=== PATIENT | female | born 1970 | race Caucasian/White ===

== ENCOUNTER 2023-10-24 17:04 | Inpatient (IN) | payer OTHER, SELFPAY ==
[2023-10-24 12:53] VITALS: BMI 43.8
[2023-10-24 12:56] VITALS: BP 200/100
--- NOTE | 2023-10-24 13:16 | ED.GENMED ---
History of Present Illness
General
Chief Complaint: Musculo-Skeletal Complaint
Source: patient
Exam Limitations: none
Time Seen by Provider: 10/24/23 13:09
Nursing documentation reviewed up to this point in time: agreed with
Travel History
Have you had any contact with someone who has COVID-19?: No
Do you have any symptoms of coronavirus? Fever > 100 degrees, chills, cough, shortness of breath, sore throat, loss of taste or smell, muscle aches, or headache?: Yes
Symptoms:: cough
History of Present Illness
History of Present Illness:
53-year-old female with history of asthma states she is here for cough and bilateral rib pain left greater than right, has had a cough since she was diagnosed with COVID on 10/11, she went to urgent care today and they had no x-ray availability so
sent here for evaluation. She states she has had low-grade fevers, denies N/V/C/D.
Past History
Past History
ED Past Medical History: Asthma
ED Past Surgical History: Appendectomy and
Social History
Tobacco: Non-smoker
Alcohol: None
Personal:
Living: with family
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
Review of Systems
Review of Systems
Allergies reviewed?: Yes
All Other Systems: ROS reviewed and negative except as documented in HPI and ROS
Constitutional: Reports fever (Low-grade) and fatigue
Respiratory: Reports cough and trouble breathing
Cardiac: Denies chest pain
ABD/GI: Denies abdominal pain, nausea, vomiting or diarrhea
: Reports flank pain (Both flanks, left greater than right); Denies dysuria, difficulty voiding or urgency
Musculoskeletal: Reports no symptoms
Skin: Reports no symptoms
Neurological: Reports no symptoms
Phy Exam
Physical Exam
Physical Exam:
GENERAL: No acute distress. A&Ox3. Morbidly obese
CONSTITUTIONAL: Afebrile.
EYES: Clear, conjunctivae normal
Neck: Supple
RESPIRATORY: Regular respirations, mildly labored, crackles in bases. Pulse ox 98% room air
CARDIOVASCULAR: Regular rate and rhythm, no murmurs, no rubs.
GI: Soft, nontender, normal BS
MUSCULOSKELETAL: Moves with ease. Well perfused.
SKIN: Warm, dry, pink
PSYCH: Normal mood and affect. Well kept, interactive and appropriate
NEUROLOGIC: Awake, alert and oriented. No focal neurological deficits
Course
Orders/Labs/Results
Orders:
Orders
10/24/23 13:15
CR Chest - 2 Views Urgent
Comment:
Reason For Exam: cough, flank pain L > R
10/24/23 14:18
0.9% Sodium Chloride 1000 ml [Nss] 1,000 ml IV BOLUS
10/24/23 14:[address] Non Medication Order As Directed
Physician Order: Please recheck BP
10/24/23 14:36
Complete Blood Count/With Diff Urgent
Comprehensive Metabolic Panel Urgent
10/24/23 14:45
Azithromycin 500 mg/250 ml [Zithromax Infusion] 500 mg in 250 ml IV NOW
CefTRIAXone [Rocephin] 1,000 mg IV NOW STA
10/24/23 15:30
Lactic Acid Q4H
Comment: CANCEL 2nd LACTIC ACID IF 1st LACTIC ACID IS LESS THAN 2
Blood Culture Q30M
THEODORA Source: Blood/Venous
Specimen Description:
10/24/23 15:55
Blood Culture Q30M
THEODORA Source: Blood/Venous
Specimen Description:
10/24/23 16:50
Admit/Transfer Patient As Directed
Co-Sign Provider:
Level of Care: Inpatient admission
Assign to:: Medical/Surgical
Physician / Group: Simon
Diagnosis: Pneumonia
Reason for Hospitalization: Pneumonia
Expected length of stay greater than two midnights?: Yes
ELOS- Estimated Length of Stay in days: 3
I certify the patient meets the requirements for IP care: Yes
10/24/23 16:51
Code Status As Directed
Resuscitation Status: Full Code
10/24/23 16:54
EKG [Electrocardiogram (*1)] Routine
Reason for Study: Shortness of Breath
10/24/23 18:45
Lactic Acid Q4H
Comment: CANCEL 2nd LACTIC ACID IF 1st LACTIC ACID IS LESS THAN 2
Abnormal Lab Results
10/24/23 10/24/23
14:36 15:30
WBC 13.3 H 10^3/uL
(4.8-10.8)
MCH 31.5 H pg
(27.0-31.0)
Abs Immat Gran (auto) 0.1 H 10^3/uL
(0-0.05)
Absolute Neuts (auto) 9.2 H 10^3/uL
(1.4-6.5)
Absolute Monos (auto) 0.9 H 10^3/uL
(0.1-0.6)
Lymphocytes % 20.4 L %
(20.5-51.1)
Carbon Dioxide 20 L mmol/L
(22-30)
Glucose 111 H mg/dl
(70-99)
Lactic Acid 2.2 H mmol/L
(0.7-2.0)
AST 40 H U/L
(14-36)
ALT 38 H U/L
(0-35)
Total Protein 9.0 H g/dl
(6.3-8.2)
10/24/23 14:36
10/24/23 14:36
Vital Signs
Initial and Last Documented VS:
Initial Vital Signs
Temp Pulse Resp BP Pulse Ox
98.0 F 106 18 200/100 98
10/24/23 12:56 10/24/23 12:56 10/24/23 12:56 10/24/23 12:56 10/24/23 12:56
Last Documented Vital Signs
Temp Pulse Resp BP Pulse Ox
98.0 F 101 20 161/91 95
10/24/23 12:56 10/24/23 16:00 10/24/23 16:00 10/24/23 16:00 10/24/23 16:00
Hand Button Splitter consulted with Physician
Hand Button Splitter consulted with physician?: Yes
Name of Physician Consulted: Joseph
MDM/Problems Addressed
Differential Diagnosis Includes:
Viral URI, pneumonia, asthma exacerbation
MDM/Problems Addressed:
53-year-old female with history of asthma states she is here for cough and bilateral rib pain left greater than right, has had a cough since she was diagnosed with COVID on 10/11, she went to urgent care today and they had no x-ray availability so
sent here for evaluation. She states she has had low-grade fevers, denies N/V/C/D.
Afebrile
10/24/2023 1443 PM
Chest x-ray radiology report read: IMPRESSION:
Small to moderate left pleural effusion. Cannot exclude left lower lobe parenchymal process, such as pneumonia.
Minor localized pneumonia in the lateral right midlung zone.
10/24/2023 1625 PM
Patient has dyspnea on exertion
CBC: WBC 13.3
CMP: No clinically significant abnormality
Plan: Admit: Bilateral pneumonia dyspnea on exertion
Hospitalist notified of admission
Case discussed with Dr. Ruiz who agrees with assessment and plan
*Critical Care Note
Total Time (30-74mins, 75-104mins- exclusive of procedures): Not Applicable
ED Attending Note
-
Portions of this chart may have been created with voice recognition software.� Occasional wrong word or��sound alike� substitutions may have occurred due to the inherent limitations of voice recognition software.
Discharge Plan
Departure
Patient Disposition: Admit
Date of Disposition: 10/24/23
Time of Disposition: 16:23
Admit to: Med/Surg
Presentation/result/management discussed w/ accepting MD/DO: Hospitalist
Condition: Fair
Covid-19: Negative COVID-19
Discharge Problem:
Bilateral pneumonia, Pleural effusion on left, Dyspnea on exertion
Interventions
Interventions:
*ED COVID-19 Vaccine History Last Done: 10/24/23 12:56
[2023-10-24 15:50] LABS: % Basophils 0.5 % (0-2); % Eosinophils 2.1 % (0-6); % Immature Granulocytes 0.5 % (0-0.5); % Lymphocytes 20.4 % (20.5-51.1); % Monocytes 6.8 % (1.7-9.3); % Neutrophils 69.7 % (42.2-75.2); Absolute Basophils 0.1 10^3/uL (0-0.2); Absolute Eosinophils 0.3 10^3/uL (0-0.7); Absolute Immature Granulocytes 0.1 10^3/uL (0-0.05); Absolute Lymphocytes 2.7 10^3/uL (1.2-3.4); Absolute Monocytes 0.9 10^3/uL (0.1-0.6); Absolute Neutrophils 9.2 10^3/uL (1.4-6.5); Hemoglobin 14.3 g/dL (12.0-16.0); Mean Corp Hgb Conc. 35.8 g/dL (33.0-37.0); Mean Corpuscular Hgb 31.5 pg (27.0-31.0); Mean Corpuscular Volume 88.1 fL (81.0-99.0); Nucleated Red Blood Cells % 0 %; Red Blood Cell Count 4.54 10^6/uL (4.20-5.40); Red Cell Dist. Width 12.4 % (11.5-14.5); White Blood Cell Count 13.3 10^3/uL (4.8-10.8)
[2023-10-24] MEDS: ZITHROMAX INFUSION 250 IV (15:56)
[2023-10-24] MEDS: ROCEPHIN 1000 MG IV (15:56)
[2023-10-24 16:00] VITALS: BP 161/91
[2023-10-24 16:02] LABS: Lactic Acid 2.2 mmol/L (0.7-2.0)
[2023-10-24] MEDS: NSS 1000 IV ×2 (16:03→20:05)
[2023-10-24 16:04] LABS: ALT (SGPT) 38 U/L (0-35); AST (SGOT) 40 U/L (14-36); Albumin 4.2 g/dl (3.5-5.0); Alkaline Phosphatase 101 U/L (38-126); Blood Urea Nitrogen 14 mg/dl (7-17); Calcium 9.5 mg/dl (8.4-10.2); Carbon Dioxide 20 mmol/L (22-30); Chloride 107 mmol/L (98-107); Glucose 111 mg/dl (70-99); Potassium 4.5 mmol/L (3.5-5.1); Sodium 136 mmol/L (135-145); eGFR > 60.00
--- NOTE | 2023-10-24 16:53 | HPS.HSE ---
Family Physician
-
Family Physician: Elana Singh
Chief Complaint
-
Cough and fever
History of Present Illness
53-year-old female was infected and diagnosed with COVID in September of this year and she recovered really well since August 18 she has been having cough which is dry except 1 episode and some clear phlegm, associated with generalized body ache,
subjective fever and chill, poor appetite and malaise, denies any urinary or GI symptoms, no chest pain or any headache or vision change.
Complaining of the lower back pain especially if she have a fever.
Workup in the ER concerning for bilateral pneumonia.
Accompanied by the at the bedside
She is awake, alert and oriented x 3. Given IV fluid and antibiotics.
At home she has been taking ibuprofen and albuterol inhaler as needed
Medical History
Past Medical History
Past Medical History: Reports Other
Additional Past Medical History:
Past medical history reviewed:
No known major medical history.
Social history: Lives at home with her , no smoking alcohol use or drug and she is independent.
Family history: Reviewed and noncontributory
Past Surgical History: Reports Other
Social History
Unable to obtain full social history at this time due to: Other
Family History
Family History: Other
Allergies / Home Medications
Allergies reflects when Allergies were last updated in [employer].
Home Medications with original date entered in [employer]
Allergy/Medication List:
Allergies
Allergy/AdvReac Type Severity Reaction Status Date / Time
NKA - No Known Allergies Allergy Unknown Uncoded 10/24/23 13:00
Home Medications
albuterol sulfate 90 mcg/actuation aerosol inhaler (ProAir HFA) 2 puff inhalation R Q6HPRN PRN sob 10/24/23
guaifenesin 600 mg tablet, extended release 12 hr (Mucinex) 600 mg PO BIDPRN PRN cough 10/24/23
ibuprofen 200 mg tablet (Advil) 200 mg PO Q6H PRN mild pain 10/24/23
Review of Systems
-
A 12 point ROS was completed and negative except as noted: Yes
Physical Exam
Vital Signs
Vital Signs
Temp Pulse Resp BP Pulse Ox
98.0 F 101 20 161/91 95
10/24/23 12:56 10/24/23 16:00 10/24/23 16:00 10/24/23 16:00 10/24/23 16:00
Physical exam:
General: Awake, alert and oriented x3, not in distress and holds appropriate conversation. Lethargic looking,
HEENT: No active discharge, ecchymosis or bruising, moist lips, tongue and mucous membrane.
Eyes: No discharge or red conjunctiva, no nystagmus, pupils are reactive and equal
Neck:Supple, no JVD no bruit no goiter.
Respiratory: Normal AP contour and diameter, normal chest wall movement, normal respiratory effort, no respiratory distress,
Lungs: Good air entry bilaterally, no wheezing or rhonchi, no rales or crackles
Heart: S1, S2 regular, normal rate, no added sound.
Gastrointestinal: Positive bowel sounds, soft, nontender, no guarding or rigidity or organomegaly
Musculoskeletal: , no chest wall abnormality or tenderness. All joints and extremities have good range of motion, no muscle tenderness or any joint swelling or tenderness.
Extremities: No pitting edema, good peripheral pulses, good range of motion
Skin: Dry scaly skin mostly on the hand, warm and dry, no ulceration, normal color.
Neurological: Awake, alert and oriented x3, no facial droop speech clear and comprehensive, good muscle tone, normal sensory and motor function
Psychiatric: Normal mood, normal thought and judgment, normal affect,
Physical Exam
General: Other
Laboratory Results
-
10/24/23 14:36
10/24/23 14:36
Laboratory Results
Lactic Acid 2.2 mmol/L (0.7-2.0) H 10/24/23 15:30
Total Bilirubin 1.0 mg/dl (0.2-1.3) 10/24/23 14:36
AST 40 U/L (14-36) H 10/24/23 14:36
ALT 38 U/L (0-35) H 10/24/23 14:36
Alkaline Phosphatase 101 U/L (38-126) 10/24/23 14:36
chest x-ray:
Small to moderate left pleural effusion. Cannot exclude left lower lobe parenchymal process, such as pneumonia.
Minor localized pneumonia in the lateral right midlung zone.
Data Reviewed
-
Diagnostic Radiology: Image Personally Visualized and interpreted, Discussed with Patient and Discussed with Family
Lab Data: Labs Reviewed by me, Discussed with Patient and Discussed with Family
Old Records: Reviewed
Impression/Plan
-
IMPRESSION:
53-year-old female presented to the hospital complaining of the cough and congestion and subjective fever and chills the last couple of day concerning for pneumonia, recently had COVID.
Bilateral pneumonia
Post COVID
leukocytosis
PLAN:
Manage for community-acquired pneumonia, even she had a COVID but she was not treated or hospitalized as post COVID hospitalization pneumonia high percentage caused by Staph aureus. But she was not there full code with Rocephin and Zithromax
IV fluid
Cough medication
Tylenol and Toradol as needed especially for her back pain and fever
Encourage oral intake.
All discussed with the patient
Discussed with the
CODE STATUS full code
DVT prophy is Lovenox
[2023-10-24] MEDS: TORADOL 30 MG IV (17:30)
[2023-10-24 18:18] VITALS: BP 173/75
[2023-10-24 18:50] VITALS: BP 174/86
[2023-10-24 18:51] VITALS: BMI 43.2
[2023-10-24 19:43] LABS: Lactic Acid 1.5 mmol/L (0.7-2.0)
[2023-10-24] MEDS: LOVENOX 40 MG SC (20:04)
[2023-10-24] MEDS: ProAIR HFA INHALER 2 PUFF INH (20:05)
[2023-10-24] MEDS: MUCINEX 600 MG PO (20:09)
[2023-10-24] MEDS: TYLENOL 650 MG PO (20:10)
[2023-10-25] MEDS: TORADOL 15 MG IV ×3 (00:54→21:29)
[2023-10-25 00:58] VITALS: BP 174/87
[2023-10-25] MEDS: ProAIR HFA INHALER 2 PUFF INH (01:58)
--- NOTE | 2023-10-25 03:50 | PTCARENOTE ---
Patient's BP 175/92. Patient does not take any anti-hypertensive medications. Patient has been hypertensive this admission. IVF infusing at 100ml/hr. Last Lactic level was WNL. DONN Frank made aware, order received to decrease IVF. Care ongoing.
[2023-10-25] MEDS: NSS 1000 IV (05:23)
[2023-10-25 06:20] LABS: % Basophils 0.5 % (0-2); % Eosinophils 2.7 % (0-6); % Immature Granulocytes 0.5 % (0-0.5); % Lymphocytes 28.6 % (20.5-51.1); % Monocytes 8.7 % (1.7-9.3); Absolute Basophils 0.1 10^3/uL (0-0.2); Absolute Eosinophils 0.3 10^3/uL (0-0.7); Absolute Immature Granulocytes 0.1 10^3/uL (0-0.05); Absolute Lymphocytes 3.2 10^3/uL (1.2-3.4); Absolute Neutrophils 6.6 10^3/uL (1.4-6.5); Hematocrit 33.7 % (37.0-47.0); Hemoglobin 11.8 g/dL (12.0-16.0); Mean Corpuscular Hgb 31.8 pg (27.0-31.0); Mean Corpuscular Volume 90.8 fL (81.0-99.0); Mean Platelet Volume 9.5 fL (7.4-10.4); Nucleated Red Blood Cells % 0 %; Platelet Count 323 10^3/uL (130-400); Red Blood Cell Count 3.71 10^6/uL (4.20-5.40); Red Cell Dist. Width 12.2 % (11.5-14.5); White Blood Cell Count 11.1 10^3/uL (4.8-10.8)
[2023-10-25 07:00] VITALS: BP 159/76
[2023-10-25 07:18] LABS: Blood Urea Nitrogen 14 mg/dl (7-17); Calcium 8.5 mg/dl (8.4-10.2); Carbon Dioxide 20 mmol/L (22-30); Chloride 104 mmol/L (98-107); Estimated Creatinine Clearance > 125 ml/min; Glucose 110 mg/dl (70-99); Sodium 134 mmol/L (135-145); eGFR > 60.00
[2023-10-25] MEDS: MUCINEX 600 MG PO (09:04)
--- NOTE | 2023-10-25 11:56 | W.PN.HOSP.TC ---
Today's Communication/Plan
-
USS chest
Change AB to Doxy and Rocephin
Assessment / Plan
Assessment / Plan
53-year-old female admitted to the hospital with symptoms of pneumonia
CVS: S1-S2 normal
Chest: decreases left base, few rales mid left lung
Abdomen: Soft, NT / Bowel sounds present
Extremities: No edema, normal pulses
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
# Pneumonia-treat as coming to acquired
Small to moderate left pleural effusion-check ultrasound
May need CT scan
Change Zithromax to doxy, continue Rocephin.
Blood cultures pending
Check sputum cultures
# History of asthma on as needed albuterol as outpatient-
# Mild lactic acidosis improved
# Elevated LFTs-likely secondary to recent viral [id number]
# Mild hyponatremia-follow for now
# DVT Prophylaxis-Lovenox
# Full CODE
Anticipated Discharge: 24 - 48 hours
Subjective/Interval History
-
Date of Service: October 25, 2023
Objective Data
-
Labs:
Laboratory Results
10/25/23
06:10
WBC 11.1 H
Hgb 11.8 L
Hct 33.7 L
Plt Count 323
Sodium 134 L
Potassium 4.0
Chloride 104
Carbon Dioxide 20 L
BUN 14
Creatinine 0.5 L
Glucose 110 H
Calcium 8.5
Vital Signs:
Vital Signs
Temp Pulse Resp BP Pulse Ox
99.1 F 90 16 159/76 94
10/25/23 07:00 10/25/23 07:00 10/25/23 07:00 10/25/23 07:00 10/25/23 10:45
[2023-10-25 12:35] LABS: ALT (SGPT) 29 U/L (0-35); AST (SGOT) 33 U/L (14-36); Albumin 3.3 g/dl (3.5-5.0); Alkaline Phosphatase 81 U/L (38-126); Direct Bilirubin 0.6 mg/dl (0.0-0.4); Total Protein 7.2 g/dl (6.3-8.2)
[2023-10-25] MEDS: ROCEPHIN 1000 MG IV (13:04)
[2023-10-25] MEDS: VIBRAMYCIN 100 MG PO ×2 (13:04→21:17)
[2023-10-25] MEDS: STERILE WATER FOR INJECTION 10 ML IV (13:05)
[2023-10-25 15:11] VITALS: BP 177/82
[2023-10-25] MEDS: TYLENOL 650 MG PO (17:13)
[2023-10-25] MEDS: LOVENOX 40 MG SC (17:22)
[2023-10-25] MEDS: COZAAR 25 MG PO (17:37)
[2023-10-25 23:15] VITALS: BP 131/61
[2023-10-26 06:42] LABS: Hematocrit 33.2 % (37.0-47.0); Hemoglobin 11.5 g/dL (12.0-16.0); Mean Corp Hgb Conc. 34.6 g/dL (33.0-37.0); Mean Corpuscular Hgb 30.6 pg (27.0-31.0); Mean Corpuscular Volume 88.3 fL (81.0-99.0); Mean Platelet Volume 9.5 fL (7.4-10.4); Platelet Count 359 10^3/uL (130-400); Red Blood Cell Count 3.76 10^6/uL (4.20-5.40); Red Cell Dist. Width 12.2 % (11.5-14.5); White Blood Cell Count 9.5 10^3/uL (4.8-10.8)
[2023-10-26 07:14] LABS: Blood Urea Nitrogen 13 mg/dl (7-17); Calcium 8.6 mg/dl (8.4-10.2); Carbon Dioxide 19 mmol/L (22-30); Chloride 107 mmol/L (98-107); Estimated Creatinine Clearance > 125 ml/min; Glucose 100 mg/dl (70-99); Potassium 3.8 mmol/L (3.5-5.1); Sodium 133 mmol/L (135-145); eGFR > 60.00
[2023-10-26 07:43] VITALS: BP 175/90
[2023-10-26] MEDS: VIBRAMYCIN 100 MG PO ×2 (08:11→21:48)
[2023-10-26] MEDS: COZAAR 25 MG PO ×2 (08:11→17:08)
[2023-10-26] MEDS: TYLENOL 650 MG PO ×2 (10:44→16:24)
[2023-10-26] MEDS: STERILE WATER FOR INJECTION 10 ML IV (13:01)
[2023-10-26] MEDS: ROCEPHIN 1000 MG IV (13:01)
--- NOTE | 2023-10-26 13:02 | PN.CDI ---
Addendum entered and electronically signed by Lin Lauren MD 10/27/23 07:49:
Documentation is complete at this time.
Original Note:
CDI
- -
CDI:
Physician Documentation Request
Admit Date: 10/24/23 17:04
Dear Doctor Xin,
Patient admitted with pneumonia.
10/25 PN, 'Pneumonia-treat as coming to acquired....Change Zithromax to Doxy, continue Rocephin.'
On admission, WBC 13.3 and HR> 90.
Please clarify which of the following most accurately describes the status of the patient's infection:
Sepsis, POA
Pneumonia only
Other
Sepsis
- Systemic manifestations of infection, with 2 or more SIRS criteria which include:
- Fever >100.4 degrees F or hypothermia < 96.8 degrees F
- Leukocytosis - WBC > 12,000 or leukopenia - WBC < 4,000 or > 10% bands
- Tachycardia > 90 beats per minute
- Tachypnea - RR > 20 breaths per minute or PaCO2 , 32mmHg
Source: Merck Manual 2012
- Indicate the known or suspected organism
- Indicate the known or suspected underlying infection, such pneumonia
- Indicate if a suspected bacterial infection of unknown source
Localized Infection Only, Without Systemic Illness
- indicate the site/source, such as pneumonia
Other
Unable to Determine
Use of terms such as suspected, likely, concern for, or probable (associated with a specific diagnosis that is being evaluated, monitored, or treated as if it exists) are acceptable and can be coded in the inpatient setting, when documented at the
time of discharge.
Thank you,
Manjula WATKINSN,RN,CCDS
CDI Specialist
Available via [employer] text
Please use your independent medical judgment in providing your response.
--- NOTE | 2023-10-26 13:36 | CON.PUL ---
Consultation
Consultation Request
Date/Time Consultation Requested: 10/26/2023
Date/Time Consultation Performed: 10/26/2023
Requesting Provider: Dr. Montes
Performing Provider: Dr. Asif Elkins
Reason for Consultation: Pneumonia
Medical History
-
History of Present Illness:
53-year-old woman who in September was diagnosed with COVID, came to the hospital complaining of generalized bodyaches, subjective fevers, chills, poor appetite and malaise, mild cough and with minimal phlegm production.
Evaluation in the emergency room showed a chest x-ray with bilateral infiltrates suggestive of pneumonia.
Her chest discomfort has improved.
She feels better.
Ambulated to the restroom today
Remains off oxygen
Continues to have coughing and phlegm production.
Does report history of snoring, is concerned about obstructive sleep apnea. She has never been tested.
Does report history of asthma which is mild. Only uses albuterol as needed
Past Medical History
Past Medical History: Other (See assessment and plan section)
Social History
Tobacco: Non-smoker
Alcohol: None
Living: With Family
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
Occupational Exposures: Denies
Environmental Exposures: Denies
Family History
Family History: Reviewed & Not Pertinent
Allergies / Home Medications
Allergies
Allergy/AdvReac Type Severity Reaction Status Date / Time
No Known Allergies Allergy Unverified 10/24/23 18:41
Home Medications
Medication Instructions Recorded Confirmed Last Taken Type
albuterol sulfate 90 mcg/actuation 2 puff inhalation R Q6HPRN PRN sob 10/24/23 10/24/23 Unknown History
aerosol inhaler (ProAir HFA)
guaifenesin 600 mg tablet, 600 mg PO BIDPRN PRN cough 10/24/23 10/24/23 Unknown History
extended release 12 hr (Mucinex)
ibuprofen 200 mg tablet (Advil) 200 mg PO Q6H PRN mild pain 10/24/23 10/24/23 10/24/23 History
Review of Systems
-
History Source: Patient
All other systems: Negative unless noted
Vitals / Labs / Diagnostic Testing
Vital Signs
Temp Pulse Resp BP Pulse Ox
98 F 88 20 175/90 92
10/26/23 07:43 10/26/23 07:43 10/26/23 07:43 10/26/23 08:11 10/26/23 09:38
Lab Data
10/26/23 06:06
10/26/23 06:06
Microbiology
10/24/23 15:55 Blood/Venous Blood Culture - Preliminary
No Growth in 24 hours- Final report to follow
10/24/23 15:30 Blood/Venous Blood Culture - Preliminary
No Growth in 24 hours- Final report to follow
10/25/23 14:11 Sputum Respiratory Culture - Final
10/25/23 14:11 Sputum Gram Stain - Final
Diagnostic Testing:
Physical Exam
-
HEENT: Normocephalic
Cardiovascular: S1/S2
Respiratory: Wheeze (n), Rales (Left base) and Non-Labored Respirations
GI: Soft and Non Distended
Neurology: Awake, Oriented, AO x 3 and No Motor Deficits
General: Respiratory Distress (n)
Assessment
-
Bilateral pneumonia-possibly bacterial, postviral.
Chest x-ray10/24/2023: Small to moderate left pleural effusion. Cannot exclude left lower lobe pneumonia. Minor localized pneumonia on the right hilum.
Left pleural effusion: Likely parapneumonic: Small on ultrasound of the chest. Not amenable for thoracentesis.
Leukocytosis
Mild hyponatremia
History of recent COVID infection .
history of mild intermittent asthma
On albuterol as needed
Snoring
Obesity
Assessment:
Agree with current therapy: Antibiotics for community-acquired pneumonia.
Seem to be responding to antibiotics, leukocytosis improving. Patient is afebrile.
-
Likely postviral
Left pleural effusion not amenable for thoracentesis but will need to be followed.
Cultures so far negative
Sputum culture: Poor sample.
Continue symptomatic management
Incentive spirometry
Increase activity as able
-
Recommend repeating chest x-ray in about 1 to 2 weeks from now to document stability of pleural effusion.
Subsequently repeat chest x-ray in about 4 to 6 weeks from now to document complete resolution
Discussed with patient and she is agreeable for follow-up.
In addition, we discussed snoring and possibility of obstructive sleep apnea. Will discuss further in the outpatient setting.
She does have history of mild asthma: Currently not bronchospastic. Continue albuterol HFA as needed after discharge.
-
Mild hyponatremia: Repeat BMP tomorrow.
-
DVT prophylaxis: SCDs/enoxaparin.
[2023-10-26 15:00] VITALS: BP 181/95
--- NOTE | 2023-10-26 15:10 | CM ---
Reviewed chart, met with patient to obtain information for assessment. Patient stated that she lives with her son and spouse in a four story townhouse with one step to enter. She described herself as independent with her ADLs, personal care,
dressing, and bathing. She ambulates without device. She denied any DME in her home.
She drives.
Patient is independent with all of her cleaning, line servicer, cooking and laundry.
She has never had VN.
Patient has never been to a SNF.
Patient has a prescription plan and uses the [facility] in [place] for all of her medications.
Patient's PCP is Dr. Elana Singh.
Patient stated that physically she feels she is at her baseline and would like to return home when stable.
Plan: Case management will continue to follow and assist with discharge planning. Patient would like to return home when cleared.
[2023-10-26] MEDS: LOVENOX 40 MG SC (17:08)
[2023-10-26 17:17] LABS: Osmolality Serum 280 mOsm/kg (275-300)
--- NOTE | 2023-10-26 17:23 | W.PN.HOSP.TC ---
Today's Communication/Plan
-
Osm studies
Continue AB
White count normalised.
Assessment / Plan
Assessment / Plan
53-year-old female admitted to the hospital with symptoms of pneumonia
CVS: S1-S2 normal
Chest: decreases left base, few rales mid left lung
Abdomen: Soft, NT / Bowel sounds present
Extremities: No edema, normal pulses
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
# Pneumonia-treat as coming to acquired
Small to moderate left pleural effusion-USS with small
Rpt CXR as OP in [address] scan
Change Zithromax to doxy, continue Rocephin.
Blood cultures neg
Sputum cultures-neg
Pulm eval appreciated
# History of asthma on as needed albuterol as outpatient-
# Mild lactic acidosis improved
# Elevated LFTs-likely secondary to recent viral [id number]
# Mild hyponatremia-follow for now
Urine osm and urine sodium
# DVT Prophylaxis-Lovenox
# Full CODE
D/W Pulm
Anticipated Discharge: Within 24 hours
Subjective/Interval History
-
Date of Service: October 26, 2023
Objective Data
-
Labs:
Laboratory Results
10/26/23
06:06
WBC 9.5
Hgb 11.5 L
Hct 33.2 L
Plt Count 359
Sodium 133 L
Potassium 3.8
Chloride 107
Carbon Dioxide 19 L
BUN 13
Creatinine 0.6
Glucose 100 H
Calcium 8.6
Vital Signs:
Vital Signs
Temp Pulse Resp BP Pulse Ox
98.9 F 93 17 181/95 92
10/26/23 15:00 10/26/23 15:00 10/26/23 15:00 10/26/23 15:00 10/26/23 15:00
I&O
10/25/23 10/26/23 10/27/23
06:59 06:59 06:59
Intake Total 1620 / 1620
Balance 1620 / 1620
[2023-10-26 18:08] LABS: Osmolality Urine 821 mOsm/kg (300-900)
[2023-10-26 18:27] LABS: Urine Sodium 164 mmol/L (30-90)
[2023-10-26] MEDS: MUCINEX 600 MG PO (21:52)
[2023-10-26 23:35] VITALS: BP 180/100
[2023-10-27] MEDS: APRESOLINE 5 MG IV ×2 (00:55→10:32)
[2023-10-27 07:37] VITALS: BP 173/94
[2023-10-27] MEDS: VIBRAMYCIN 100 MG PO ×2 (08:39→20:36)
[2023-10-27] MEDS: COZAAR 50 MG PO (08:39)
[2023-10-27] MEDS: TYLENOL 650 MG PO ×2 (08:39→19:25)
--- NOTE | 2023-10-27 11:09 | W.PN.PUL3 ---
Today's Communication / Plan
-
Cont. AB, transition to PO upon dc and complete total 7d.
will need short term follow up in office, with CXR.
Will sign off.
Assessment
-
Bilateral pneumonia-possibly bacterial, postviral.
Chest x-ray10/24/2023: Small to moderate left pleural effusion. Cannot exclude left lower lobe pneumonia. Minor localized pneumonia on the right hilum.
Left pleural effusion: Likely parapneumonic: Small on ultrasound of the chest. Not amenable for thoracentesis.
Leukocytosis
Mild hyponatremia
History of recent COVID infection .
history of mild intermittent asthma
On albuterol as needed
Snoring
Obesity
Assessment:
Continue with Antibiotics for community-acquired pneumonia.
Ok to transition to PO upond DC and complete total of 7days.
Seem to be responding to antibiotics, leukocytosis resolved. Patient is afebrile.
Likely postviral
-
Left pleural effusion not amenable for thoracentesis but will need to be followed.
Cultures so far negative
Sputum culture: Poor sample.
Continue symptomatic management
Incentive spirometry
Increase activity as able
-
Recommend repeating chest x-ray in about 1 to 2 weeks from now to document stability of pleural effusion.
Subsequently repeat chest x-ray in about 4 to 6 weeks from now to document complete resolution
Discussed with patient and she is agreeable for follow-up.
In addition, we discussed snoring and possibility of obstructive sleep apnea. Will discuss further in the outpatient setting.
She does have history of mild asthma: Currently not bronchospastic. Continue albuterol HFA as needed after discharge.
-
Mild hyponatremia: Management per primary team
-
DVT prophylaxis: SCDs/enoxaparin.
-
No additional recommendations from the pulmonary perspective, as above pt agreeable to follow up short term.
Will sign off.
Subjective Data
-
Date of Service:
Date of Service: October 27, 2023
Chief Complaint: Pulmonary Follow Up (PNeumonia/Pleural effusion)
Subjective:
No new complaints.
No SOB with ambulating to restroom.
No significant chest discomfort.
Review of Systems
General: Fever (n)
Cardiopulmonary: Dyspnea (none at rest), Cough (improved) and Sputum Production (minimal)
GI: Abdominal Pain (n), Nausea (n) and Vomiting
Objective Data
Data Reviewed
Vital Signs / I&O / Oxygen:
Vital Signs
Temp Pulse Resp BP Pulse Ox
98.0 F 90 16 182/90 93
10/27/23 07:37 10/27/23 10:32 10/27/23 07:37 10/27/23 10:32 10/27/23 07:37
Intake and Output
10/26/23 10/27/23 10/28/23
06:59 06:59 06:59
Intake Total 1620 / 1620 1620 / 1620
Balance 1620 / 1620 1620 / 1620
SaO2 93
Physical Exam
General: Respiratory Distress (n) and Comfortable
HEENT: Normocephalic
Cardiovascular: S1-S2
Respiratory: Crackles (Left base.) and Non-Labored Respirations
GI: Soft and Distended (Obese)
Neurology: Awake, Alert and Oriented
Skin: Warm
Labs/Micro/Reports
Lab Data
10/26/23 06:06
10/26/23 06:06
Microbiology
10/24/23 15:55 Blood/Venous Blood Culture - Preliminary
No Growth in 48 hours- Final report to follow
10/24/23 15:30 Blood/Venous Blood Culture - Preliminary
No Growth in 48 hours- Final report to follow
10/25/23 14:11 Sputum Respiratory Culture - Final
10/25/23 14:11 Sputum Gram Stain - Final
[2023-10-27 12:45] VITALS: BP 202/80
[2023-10-27] MEDS: PROCARDIA XL (EXTENDED RELEASE) 30 MG PO (13:23)
[2023-10-27] MEDS: TRANDATE 10 MG IV (13:23)
[2023-10-27] MEDS: STERILE WATER FOR INJECTION 10 ML IV (13:25)
[2023-10-27] MEDS: ROCEPHIN 1000 MG IV (13:25)
--- NOTE | 2023-10-27 14:39 | W.PN.HOSP.TC ---
Today's Communication/Plan
-
BP control
Renal eval
Left a message for PCP [phone]
Assessment / Plan
Assessment / Plan
53-year-old female admitted to the hospital with symptoms of pneumonia
CVS: S1-S2 normal
Chest: decreased left base, few rales mid left lung
Abdomen: Soft, NT / Bowel sounds present
Extremities: No edema, normal pulses
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
# Pneumonia-treat as coming to acquired
Small to moderate left pleural effusion-USS with small
Rpt CXR as OP in [address] scan
Change Zithromax to doxy, continue Rocephin.
Blood cultures neg
Sputum cultures-neg
Pulm eval appreciated
# HTN- Was started on Losartan 25 mg 2 days ago and increased to 50 mg yesterday. Patient states that she does not initially have high blood pressure in the doctor's office. Started nifedipine
Renal evaluation to see if she needs secondary hypertension workup.
Patient does report headaches frequently which she attributes to sinus
# History of asthma on as needed albuterol as outpatient-
# Mild lactic acidosis improved
# Elevated LFTs-likely secondary to recent viral infection-normalised.
# Mild hyponatremia-follow for now
[facility] Physiology
# DVT Prophylaxis-Lovenox
# Full CODE
D/W Pulm
D/W Nephrology
D/W RN
Anticipated Discharge: Within 24 hours
Subjective/Interval History
-
Date of Service: October 27, 2023
Objective Data
-
Labs:
Laboratory Results
10/27/23
14:16
Sodium Pending
Potassium Pending
Chloride Pending
Carbon Dioxide Pending
BUN Pending
Creatinine Pending
Glucose Pending
Calcium Pending
Vital Signs:
Vital Signs
Temp Pulse Resp BP Pulse Ox
98.0 F 90 16 182/90 93
10/27/23 07:37 10/27/23 10:32 10/27/23 07:37 10/27/23 10:32 10/27/23 07:37
I&O
10/26/23 10/27/23 10/28/23
06:59 06:59 06:59
Intake Total 1620 / 1620 1620 / 1620
Balance 1620 / 1620 1620 / 1620
--- NOTE | 2023-10-27 14:50 | W.PN.UPDATE ---
Update Note
Progress Note Update
Spoke to PCP. Dr. Arlene Thomas
Last vitis was in December 2022.
140/80 -during last visit.
PCP stated that patient has had high blood pressures reported without a diagnosis of hypertension.
Discussed about pneumonia, blood pressure, follow-up needs.
--- NOTE | 2023-10-27 14:53 | W.CON.NEPH ---
Consultation
-
Date/Time Consultation Requested: 10/27/23 1300
Date/Time Consultation Performed: 10/27/23 1330
Requesting Provider: Lin Pérez
Performing Provider: Richa Nicholson
Reason for Consultation: HTN
Medical History
-
Chief Complaint: sob
History of Present Illness:
53-year-old female was recently had COVID in September of this year, history of asthma on inhaler as needed, we'll noted to have some chest tightness and bandlike discomfort in her chest. She saw urgent care and noted to have mild hypoxia. She also
noted to have a cough. She was sent to their ER and diagnosed with bilateral pneumonia felt to be community-acquired. Patient reports having pneumonia in the past as well. Since admission her blood pressures noted to be estimated peak at 200
range despite on medications. She reports no prior history of hypertension that she is aware of it however had history of headache which she thought was the sinus and during these times her blood pressures were elevated in 190 range. She reports
having good blood pressure readings with her doctor's appointment but she doesn't recall them. She also reports having snoring during night. She started to take ibuprofen at least 3-4 pills per day since the beginning of September. Denies any
chest pain, shortness of breath is improving. No lower extremity edema.
Past Medical History
History of asthma
COVID in Sep 2023
Sinus headaches
Social History
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
No alcohol
Family History
or history of kidney disease
Allergies / Home Medications
Allergy/AdvReac Type Severity Reaction Status Date / Time
No Known Allergies Allergy Unverified 10/24/23 18:41
Medication Instructions Recorded Confirmed Type
albuterol sulfate 90 mcg/actuation 2 puff inhalation R Q6HPRN PRN sob 10/24/23 10/24/23 History
aerosol inhaler (ProAir HFA)
guaifenesin 600 mg tablet, 600 mg PO BIDPRN PRN cough 10/24/23 10/24/23 History
extended release 12 hr (Mucinex)
ibuprofen 200 mg tablet (Advil) 200 mg PO Q6H PRN mild pain 10/24/23 10/24/23 History
Review of Systems
-
all completed 12 point review of system have been inquired and found negative other than stated in HPI
Physical Exam
Vital Signs
Vital Signs
Temp Pulse Resp BP Pulse Ox
98.0 F 90 16 182/90 93
10/27/23 07:37 10/27/23 10:32 10/27/23 07:37 10/27/23 10:32 10/27/23 07:37
Lab Results
WBC 9.5 10^3/uL (4.8-10.8) 10/26/23 06:06
RBC 3.76 10^6/uL (4.20-5.40) L 10/26/23 06:06
Hgb 11.5 g/dL (12.0-16.0) L 10/26/23 06:06
Hct 33.2 % (37.0-47.0) L 10/26/23 06:06
Plt Count 359 10^3/uL (130-400) 10/26/23 06:06
eGFR Cancelled 10/27/23 14:16
Albumin 3.3 g/dl (3.5-5.0) L 10/25/23 06:10
Sodium 133, potassium 3.8, creatinine 0.6, bicarbonate 119, creatinine 0.6, BUN 13, calcium 8.6
CXR
FINDINGS:
Hazy opacity is superimposed on the left mid to lower lung zone. There is increased opacity obscuring the left diaphragm with blunting of the lateral and posterior costophrenic angle. The appearance is most consistent with left pleural effusion,
likely extending along the left major fissure. However, an underlying parenchymal process, such as pneumonia cannot be entirely excluded.
Minor patchy localized opacity in the lateral right midlung zone consistent with pneumonia.
No pneumothorax.
No evidence of vascular congestion or cardiomegaly to suggest congestive heart failure.
IMPRESSION:
Small to moderate left pleural effusion. Cannot exclude left lower lobe parenchymal process, such as pneumonia.
Minor localized pneumonia in the lateral right midlung zone.
Electronically signed by Alex Mullins MD 10/24/2023 2:40 PM
Dictated By: Alex Mullins MD.
Dictated Date & Time: 10/24/23 1434
Signed/Co-Signer By: Alex Mullins MD /
Signed/Co-Signer Date & Time: 10/24/23 1440 /
Transcribed by: Alex Mullins
Physical Exam
General: Awake, Alert, Oriented and AOx3
HEENT: EOMI and Anicteric
Respiratory: Crackels (bases)
Cardiac: S1/S2 and Regular Rate/Rhythm
Abdomen: Soft, Nontender and Nondistended
Musculoskeletal: No Clubbing, No Cyanosis and No Edema
Skin: No Rash
Neuro: Nonfocal/Grossly Intact
Psych: Mood/afflect pleasant, Insight/judgement good and Appropriate
Assessment/Plan
-
IMP:
Pneumonia coming to acquired
Small to moderate left pleural effusion-USS with small
HTN urgency
History of asthma on as needed albuterol as outpatient
Mild lactic acidosis improved
mild non gap met acidosis
Elevated LFTs-resolvd
Mild hyponatremia
h/o HANCOCK felt to be sinus
suspect TANYA
h/o COVID early Sep
OBesity
Plan:
A/w sob, found PNA
HTN -suspect chronic but not diagnosed before
SBP in 190s when she has sinus HAs
she also had regular use of NSAIDs this month since COVID too which risk factor
highly suspect TANYA, need out pt testing
agree with starting Nifedipine and titrate as needed
cont Losartan, could not use HCTZ due to mild hyponatremia which is likely from lung issues,U osm 821
if sodium worsens likely start lasix 20mg daily
low salt diet
monitor met acidosis
check ARR, consider renal duplex, EKG with possible LVH change, check UA
reviewed her risk factors and imp of controlling BPs moving forward
will benefit from wt loss too
d/w primary and pt
Data Reviewed
-
Radiology: Report Reviewed by me and Other
Medical Tests (Nuc Med, Echo etc): Image Personally Visualized and interpreted (EKG LVH changes, NS. ), Report Reviewed by me and Other (EKG )
Labs: Labs Reviewed by me
[2023-10-27 15:26] VITALS: BP 136/70
[2023-10-27 15:38] LABS: Blood Urea Nitrogen 12 mg/dl (7-17); Calcium 8.9 mg/dl (8.4-10.2); Carbon Dioxide 20 mmol/L (22-30); Chloride 107 mmol/L (98-107); Estimated Creatinine Clearance 112 ml/min; Glucose 120 mg/dl (70-99); Potassium 3.6 mmol/L (3.5-5.1); Sodium 134 mmol/L (135-145); eGFR > 60.00
[2023-10-27] MEDS: LOVENOX 40 MG SC (17:33)
[2023-10-27 23:13] VITALS: BP 138/74
[2023-10-28 02:50] VITALS: BP 151/83
[2023-10-28 07:00] VITALS: BP 169/92
[2023-10-28 07:00] LABS: Blood Urea Nitrogen 12 mg/dl (7-17); Calcium 9.4 mg/dl (8.4-10.2); Carbon Dioxide 24 mmol/L (22-30); Chloride 104 mmol/L (98-107); Estimated Creatinine Clearance > 125 ml/min; Glucose 117 mg/dl (70-99); Sodium 136 mmol/L (135-145); eGFR > 60.00
[2023-10-28] MEDS: COZAAR 50 MG PO (08:27)
[2023-10-28] MEDS: VIBRAMYCIN 100 MG PO (08:27)
[2023-10-28] MEDS: PROCARDIA XL (EXTENDED RELEASE) 30 MG PO (08:27)
[2023-10-28] MEDS: TYLENOL 650 MG PO (08:27)
[2023-10-28 09:43] VITALS: BP 146/76
[2023-10-28 10:24] LABS: Urine Albumin Trace (Neg - Trace); Urine Bilirubin Negative (Negative); Urine Character Slightly Cloudy (Clear); Urine Color Yellow; Urine Glucose Negative (Negative); Urine Ketone 1+ (Negative); Urine Leukocyte Negative (Negative); Urine Nitrite Negative (Negative); Urine Occult Blood 3+ (Negative); Urine Urobilinogen Negative (Neg - 1+)
--- NOTE | 2023-10-28 10:55 | CM ---
Reviewed chart, patient is functioning at baseline level. Will return home when medically stable. Should be no needs.
Plan: Case management will continue to follow and assist with discharge planning. Plan remains for home when medically cleared.
[2023-10-28 10:56] LABS: Urine Amorphous Seen
[2023-10-28 10:59] LABS: Urine Bacteria Few (Negative)
[2023-10-28] MEDS: ROCEPHIN 1000 MG IV (14:02)
[2023-10-28] MEDS: STERILE WATER FOR INJECTION 10 ML IV (14:03)
--- NOTE | 2023-10-28 15:12 | W.PN.NEPH.PH ---
Today's Communication / Plan
-
see plan
Assessment/Plan
-
IMP:
Pneumonia coming to acquired
Small to moderate left pleural effusion-USS with small
HTN urgency
History of asthma on as needed albuterol as outpatient
Mild lactic acidosis improved
mild non gap met acidosis
Elevated LFTs-resolvd
Mild hyponatremia
h/o HANCOCK felt to be sinus
suspect TANYA
h/o COVID early Sep
OBesity
Plan:
A/w sob, found PNA
HTN -suspect chronic but not diagnosed before
SBP in 190s when she has sinus HAs
she also had regular use of NSAIDs this month since COVID too which risk factor
highly suspect TANYA, need out pt testing
BP improving, cont Nifedipine and Losartan,
could not use HCTZ with mild hyponatremia which is likely from lung issues,U osm 821
sodium since improved
low salt diet
improved met acidosis
pending ARR, pending renal duplex, EKG with possible LVH change, UA ?UTI but no symp
reviewed her risk factors and imp of controlling BPs moving forward
will benefit from wt loss too
d/w primary and pt
if renal us ok can d/c today with f/u pcp, bmp in 2weeks since new ARB
-
-
Date of Service: October 28, 2023
CC / HPI / ROS
-
Chief Complaint:
HTN
History of Present Illness:
bp are improving with meds
sodium normal, met acidosis resolved
Review of Systems:
no cp or sob
feels well
Labs
-
Labs:
WBC 9.5 10^3/uL (4.8-10.8) 10/26/23 06:06
RBC 3.76 10^6/uL (4.20-5.40) L 10/26/23 06:06
Hgb 11.5 g/dL (12.0-16.0) L 10/26/23 06:06
Hct 33.2 % (37.0-47.0) L 10/26/23 06:06
Plt Count 359 10^3/uL (130-400) 10/26/23 06:06
Sodium 136 mmol/L (135-145) 10/28/23 06:20
Potassium 4.0 mmol/L (3.5-5.1) 10/28/23 06:20
Chloride 104 mmol/L (98-107) 10/28/23 06:20
Carbon Dioxide 24 mmol/L (22-30) 10/28/23 06:20
BUN 12 mg/dl (7-17) 10/28/23 06:20
Creatinine 0.5 mg/dL (0.6-1.0) L 10/28/23 06:20
eGFR > 60.00 10/28/23 06:20
Glucose 117 mg/dl (70-99) H 10/28/23 06:20
Calcium 9.4 mg/dl (8.4-10.2) 10/28/23 06:20
Albumin 3.3 g/dl (3.5-5.0) L 10/25/23 06:10
Physical Exam
-
Vital Signs:
Vital Signs
Temp Pulse Resp BP Pulse Ox
97.7 F 99 18 146/76 95
10/28/23 07:00 10/28/23 09:43 10/28/23 07:00 10/28/23 09:43 10/28/23 07:00
Cardiovascular:: Regular rate and rhythm
Respiratory:: Bilateral: CTA
Lung Excursion:: Normal
Abdomen:: Nontender and Soft
Extremity Edema:: None: Bilateral:
Muro Catheter: No
[2023-10-28 15:35] VITALS: BP 151/83
--- NOTE | 2023-10-28 15:41 | W.PN.UPDATE ---
Update Note
Progress Note Update
RA USS can be done as OP per Renal.
OK for discharge
--- NOTE | 2023-10-28 15:42 | W.PN.HOSP.TC ---
Today's Communication/Plan
-
Discharge
Assessment / Plan
Assessment / Plan
53-year-old female admitted to the hospital with symptoms of pneumonia
CVS: S1-S2 normal
Chest: decreased left base, few rales mid left lung
Abdomen: Soft, NT / Bowel sounds present
Extremities: No edema, normal pulses
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
# Pneumonia-treat as coming to acquired
Small to moderate left pleural effusion-USS with small
Rpt CXR as OP in [address] scan
Change Zithromax to doxy, Change to ceftin
Blood cultures neg
Sputum cultures-neg
Pulm eval appreciated
# HTN- Was started on Losartan 25 mg 2 days ago and increased to 50 mg
. Patient states that she does not initially have high blood pressure in the doctor's office. Started nifedipine
Renal evaluation to see if she needs secondary hypertension workup.
Patient does report headaches frequently which she attributes to sinus
Patient likely has hypertension
Secondary hypertension workup pending
Renal artery ultrasound was ordered however has to be n.p.o. therefore nephrology recommended outpatient renal artery ultrasound.
# History of asthma on as needed albuterol as outpatient-
# Mild lactic acidosis improved
# Elevated LFTs-likely secondary to recent viral infection-normalized.
# Mild hyponatremia-follow for now
[facility] Physiology
# DVT Prophylaxis-Lovenox
# Full CODE
D/W Nephrology
D/W RN
Patient wants to be discharged
Patient is aware that renin angiotensin aldosterone pending and she needs to follow-up with renal all primary for results.
Discharge follow-up discussed in detail
Discharge time 31 minutes
Anticipated Discharge: Today
Subjective/Interval History
-
Date of Service: October 28, 2023
Objective Data
-
Labs:
Laboratory Results
10/28/23
06:20
Sodium 136
Potassium 4.0
Chloride 104
Carbon Dioxide 24
BUN 12
Creatinine 0.5 L
Glucose 117 H
Calcium 9.4
Vital Signs:
Vital Signs
Temp Pulse Resp BP Pulse Ox
97.9 F 92 18 151/83 94
10/28/23 15:35 10/28/23 15:35 10/28/23 15:35 10/28/23 15:35 10/28/23 15:35
I&O
10/27/23 10/28/23 10/29/23
06:59 06:59 06:59
Intake Total 1620 / 1620 1080 / 1080
Output Total 45 / 45
Balance 1620 / 1620 1080 / 1080 -45 / -45
--- NOTE | 2023-10-28 15:49 | W.DS.TRANS ---
Addendum entered and electronically signed by Lin Lauren MD 10/28/23 17:14:
Dictation- [id number]
Original Note:
DC Summary - Offal Baler
-
Discharge Instructions:
Discharge Diagnosis/Procedures Pneumonia, hypertension, pleural effusion,
history of asthma, slightly low sodium
Diet 2 Gram Sodium
Activity As tolerated
Driving Restrictions As prior to admission
Blood Work BMP 1 week
Others Tests Chest X ray 2 weeks then in 4 weeks till cleared
. Renal artery ultrasound as outpatient.
Stop these medications: Stop ibuprofen
Instructions:
Stand-Alone Forms:
Changes to Home Medications: Yes
Discharge Medications:
DC Medications w/original date entered in [email or web address]
albuterol sulfate 90 mcg/actuation aerosol inhaler (ProAir HFA) 2 puff inhalation R Q6HPRN PRN sob 10/24/23
guaifenesin 600 mg tablet, extended release 12 hr (Mucinex) 600 mg PO BIDPRN PRN cough 10/24/23
cefuroxime axetil 500 mg tablet 500 mg PO BID Infection #6 tabs 10/28/23
doxycycline hyclate 100 mg capsule 100 mg PO Q12 Infection #6 caps 10/28/23
losartan 50 mg tablet 50 mg PO DAILY Blood pressure #60 tabs 10/28/23
nifedipine 30 mg tablet,extended release 30 mg PO DAILY Blood pressure #60 tabs 10/28/23
Home Medication Changes
new
cefuroxime axetil 500 mg tablet 500 mg PO BID Infection #6 tabs 10/28/23
doxycycline hyclate 100 mg capsule 100 mg PO Q12 Infection #6 caps 10/28/23
losartan 50 mg tablet 50 mg PO DAILY Blood pressure #60 tabs 10/28/23
nifedipine 30 mg tablet,extended release 30 mg PO DAILY Blood pressure #60 tabs 10/28/23
Pending Results: Yes
Additional Pending Results:
Renin ,angiotensin,aldosterone
[2023-10-30 11:24] LABS: Aldosterone, Serum <3.0 ng/dL; Aldosterone/Renin Activ Ratio <2.3 ratio (<=25.0); Renin Activity Results 1.3 ng/mL/hr
== END 2023-10-28 18:57 | disposition home or self-care (01) | DRG 194 ==
LOC: 3 WEST ACU 17:04
PROVIDERS: Registered Nurse; ADMITTING PHYSICIAN Internal Medicine; ATTENDING PHYSICIAN Hospitalist; CONSULT PHYSICIAN Internal Medicine; CONSULT PHYSICIAN Internal Medicine Critical Care Medicine; EMERGENCY PHYSICIAN Emergency Medicine; FAMILY PHYSICIAN Family Medicine
DX: J18.9 Pneumonia, unspecified organism (principal); E22.2 Syndrome of inappropriate secretion of antidiuretic hormone; J90 Pleural effusion, not elsewhere classified; Z68.41 Body mass index [BMI] 40.0-44.9, adult; E87.20 Acidosis, unspecified; J45.20 Mild intermittent asthma, uncomplicated; R06.83 Snoring; E66.9 Obesity, unspecified; I10 Essential (primary) hypertension; R09.02 Hypoxemia; R79.89 Other specified abnormal findings of blood chemistry; G47.33 Obstructive sleep apnea (adult) (pediatric); I16.0 Hypertensive urgency; Z86.16 Personal history of COVID-19
CPT/HCPCS: 71046; 76604; 80048; 80053; 81003; 81015; 82088; 82248; 83605; 83930; 83935; 84244; 84300; 85025; 85027; 87040; 87205; 93005; 94640; 96365; 96375; 99285